=== PATIENT | male | born 1995 | race African-American/Black ===

== ENCOUNTER 2021-12-08 21:36 | Emergency (ER) | payer OTHER ==
[~2021-12-08] VITALS: Ht 179.1 cm; Wt 81.0 kg
[2021-12-09] MEDS ORDERED: ASPIRIN 325MG EC TABLET PO ONE (03:00)
[2021-12-09 03:20] LABS: BASOPHILS % 0.8 % (0.0-2.0); EOSINOPHILS % 5.3 % (0.0-5.0); HEMATOCRIT. 44.4 % (42.0-52.0); HEMOGLOBIN. 14.9 g/dL (14.0-18.0); LYMPHOCYTES % 38.4 % (20.0-50.0); MEAN CORPUSCULAR HEMOGLOBIN 29.3 pg (28.0-32.0); MEAN CORPUSCULAR VOLUME 87.2 fL (80.0-94.0); MEAN PLATELET VOLUME 7.7 fl (7.4-10.4); NEUTROPHILS % 47.5 % (40.0-76.0); PLATELET 257 x1000/uL (130-400); RED BLOOD CELL COUNT 5.09 mill/uL (4.7-6.1); RED CELL DISTRIBUTION WIDTH 13.9 % (11.6-14.6)
[2021-12-09 03:33] LABS: CHLORIDE 104 mEq/L (98-107)
[2021-12-09 04:19] VITALS: BP 115/78
== END 2021-12-09 04:19 | disposition home or self-care (01) ==
LOC: ER 21:36
DX: R07.89 Other chest pain (principal); F17.290 Nicotine dependence, other tobacco product, uncomplicated
CPT/HCPCS: 36415; 71045; 80053; 83880; 84484; 85025; 99284; 99285; 99406

== ENCOUNTER 2025-01-30 12:26 | Emergency (ER) | payer OTHER, MEDICAID ==
[~2025-01-30] VITALS: Ht 177.8 cm; Wt 89.0 kg
[2025-01-30 12:28] VITALS: PULSE 91; RESP 18; O2SAT 97
[2025-01-30 12:34] VITALS: BP 155/88; TEMP 36.9; O2SAT 99
[2025-01-30] MEDS ORDERED: ACET-2708 MT (13:15)
[2025-01-30] MEDS: KETOROLAC 30MG/ML VIAL IM ONE (13:16)
[2025-01-30] MEDS: ACETAMINOPHEN 325MG TABLET PO ONE (13:16)
== END 2025-01-30 13:57 | disposition home or self-care (01) ==
LOC: ER 12:26
DX: S49.92XA Unspecified injury of left shoulder and upper arm, initial encounter (principal); Z88.0 Allergy status to penicillin; Z88.6 Allergy status to analgesic agent; V43.62XA Car passenger injured in collision with other type car in traffic accident, initial encounter; Y93.89 Activity, other specified; Y92.410 Unspecified street and highway as the place of occurrence of the external cause; Y99.8 Other external cause status
CPT/HCPCS: 73030; 99283

== ENCOUNTER 2025-04-03 13:49 | Emergency (ER) | payer MEDICAID, OTHER ==
[~2025-04-03] VITALS: Ht 177.8 cm; Wt 85.0 kg
[~2025-04-03 13:49] MED LIST: ACET-2708 MT
[2025-04-03 14:13] VITALS: O2SAT 100
[2025-04-03 15:18] VITALS: BP 125/88; PULSE 76; RESP 16; TEMP 37; O2SAT 100
[2025-04-03 16:52] LABS: INFLUENZA TYPE A Presumptive Negative (Pres. Neg.)
[2025-04-03 16:53] LABS: INFLUENZA TYPE B Presumptive Negative (Pres. Neg.)
== END 2025-04-03 15:20 | disposition home or self-care (01) ==
LOC: ER 14:17
DX: J45.909 Unspecified asthma, uncomplicated (principal); Z20.822 Contact with and (suspected) exposure to COVID-19; Z88.0 Allergy status to penicillin; Z88.6 Allergy status to analgesic agent
CPT/HCPCS: 87426; 87804; 99283

== ENCOUNTER 2025-04-05 07:35 | Emergency (ER) | payer MEDICAID ==
[~2025-04-05] VITALS: Ht 177.8 cm; Wt 85.0 kg
[2025-04-05 07:40] VITALS: O2SAT 98
[2025-04-05] MEDS ORDERED: SULF1TAB48 MT (09:29)
[2025-04-05 09:44] VITALS: BP 118/80; PULSE 80; RESP 18; TEMP 37.1; O2SAT 98
== END 2025-04-05 09:46 | disposition home or self-care (01) ==
LOC: ER 07:35
DX: M79.89 Other specified soft tissue disorders (principal); F12.90 Cannabis use, unspecified, uncomplicated; F17.290 Nicotine dependence, other tobacco product, uncomplicated; G43.909 Migraine, unspecified, not intractable, without status migrainosus; J45.909 Unspecified asthma, uncomplicated; Z98.890 Other specified postprocedural states; Z88.6 Allergy status to analgesic agent; Z88.0 Allergy status to penicillin
CPT/HCPCS: 71045; 93005; 99283